=== PATIENT | male | born 1975 | race Caucasian/White ===

== ENCOUNTER 2024-08-26 15:26 | Emergency (ER) | payer SELFPAY ==
[~2024-08-26 15:26] MED LIST: Iopamidol-370 76% 500 ML MDV (1 ML CHARGE) ONE
[2024-08-26 16:16] LABS: #Basophils 0.07 10x3/uL (0.0-0.2); %Basophils 0.3 % (0.0-1.0); %Eosinophils 1.7 % (0.0-10.0); %Lymphocytes 16.8 % (21.0-51.0); %Monocytes 9.7 % (0.0-10.0); %Neutrophils 71.1 % (42.0-75.0); Hematocrit 46.8 % (42.0-52.0); Hemoglobin 16.4 g/dL (14.0-18.0); Mean Corpuscular Hemoglobin 30.9 pg (27.0-31.0); Mean Corpuscular Volume 88.3 fL (78.0-98.0); Mean Platelet Volume 10.2 fL (7.4-10.4); Platelet Count 316 10x3/uL (130-400)
[2024-08-26] MEDS ORDERED: Ondansetron PF 4 MG/2 ML Vial ONE (16:30)
[2024-08-26] MEDS ORDERED: Morphine 2 MG/ML VIAL ONE (16:30)
[2024-08-26 16:33] LABS: ALT (SGPT) 18 U/L (8-55); AST (SGOT) 13 U/L (5-34); Albumin 3.9 g/dL (3.5-5.0); Alkaline Phosphatase 79 U/L (40-110); Anion Gap 16 mmol/L (10-20); BUN (Urea Nitrogen) 11 mg/dL (8.9-20.6); Calc. Creatinine Clearance 0 mL/min (70-130); Calcium 9.3 mg/dL (7.8-10.44); Carbon Dioxide 20 mmol/L (22-29); Chloride 101 mmol/L (98-107); Estimated GFR 103; Globulin 4.2 g/dL (2.4-3.5); Glucose 95 mg/dL (70-105); Lipase 62 U/L (8-78); Potassium 3.6 mmol/L (3.5-5.1); Protein, Total 8.1 g/dL (6.0-8.3); Sodium 133 mmol/L (136-145)
[2024-08-26 16:52] LABS: Bacteria/HPF None Seen HPF (None Seen); Bilirubin Negative (Negative); Blood, Urine Negative (Negative); CAUTI Indications for Culture Acute Hematuria; Clarity Clear (Clear); Glucose, Urine (Dipstick) Normal (Negative); Ketone, Urine Negative (Negative); Leukocyte Negative Leu/uL (Negative); Nitrite Negative (Negative); Protein, Urine (Dipstick) Negative (Neg-Trace); RBC/HPF None Seen HPF (0-3); Specific Gravity, Urine 1.002 (1.002-1.036); Squamous Epithelial None Seen HPF (0-3); Urobilinogen Normal mg/dL (Less than 2); WBC/HPF 0-3 HPF (0-3)
[2024-08-26] MEDS ORDERED: Droperidol 5 MG/2 ML VIAL ONE (17:08)
[2024-08-26 17:09] LABS: Urine Culture Reflex No No
[2024-08-26] MEDS ORDERED: diphenhydrAMINE 50 MG/ML VIAL ONE (18:01)
[2024-08-26] MEDS ORDERED: Mag-Al 1200 mg/1200 mg/30 ML UDCUP ONE (18:01)
[2024-08-26] MEDS ORDERED: Lidocaine Viscous Sol 2% 15 ml UD Cup ONE (18:01)
[2024-08-26] MEDS ORDERED: Famotidine/PF 20 mg/2ml Vial ONE (18:02)
== END 2024-08-26 18:40 | disposition home or self-care (01) ==
LOC: ERS 15:26
DX: F12.188 Cannabis abuse with other cannabis-induced disorder (principal); R11.2 Nausea with vomiting, unspecified; F17.210 Nicotine dependence, cigarettes, uncomplicated
CPT/HCPCS: 36415; 74177; 80053; 81001; 83605; 83690; 85025; 96361; 96374; 96375; J1200; J1790; J2272; J2405; J3490; Q9967